=== PATIENT | female | born 2000 | race Caucasian/White ===

== ENCOUNTER 2025-02-27 22:11 | Emergency (ER) | payer OTHER, SELFPAY ==
[2025-02-27 22:14] VITALS: BP 107/71; PULSE 82; RESP 18; TEMP 36.9; O2SAT 100
--- OUTSIDE RECORDS SUMMARY | 2025-02-27 22:15 | XMS_ITS | Clinical Summary ---
Author Organization [facility] Address [address] [place] [address] Care Team Providers Care Repeater Chief Name Role Phone Jazzmine Ly MD Primary Care Provider [phone] Source Comments [facility],non-owned Affiliates and Associated Physician Practices is amultiple site organization consisting of ambulatory clinics and hospital sitesin [place], [place], [place] and [place]. This disclosure is being madepursuant to the Care Everywhere program and may not contain all information available regarding this patient. Last updated 18.[facility] Allergies Active Allergy Reactions Criticality Noted Date Comments Amoxicillin Rash Medium 07/06/2018 Medications * Be aware that medications may not be up to date on this document. Alwaysverify current medications with the patient. No known medications Active Problems No known active problems Social History Tobacco Use Types Packs/Day Years Used Date Smoking Tobacco: Never Smokeless Tobacco: Never Comments No Sex and Gender Information Value Date Recorded Sex Assigned at Not on file Legal Sex Female 5:12 PM CDT Gender Identity Not on file Sexual Orientation Not on file Last Filed Vital Signs Vital Sign Reading Time Taken Comments Blood Pressure 102/58 12/25/2019 11:57 AM CDT Pulse 106 12/25/2019 11:57 AM CDT Temperature 37.6 C (99.7 F) 12/25/2019 11:57 AM CDT Respiratory Rate 17 12/25/2019 11:57 AM CDT Oxygen Saturation 99% 12/25/2019 11:57 AM CDT Inhaled Oxygen Concentration - - Weight 52.2 kg (115 lb) 12/25/2019 11:57 AM CDT Height 157.5 cm (5' 2 ) 12/25/2019 11:57 AM CDT Body Mass Index 21.03 12/25/2019 11:57 AM CDT Plan of Treatment Health Maintenance Due Date Last Done Comments HIV SCREENING 2013 HPV VACCINE (1 - 3-dose series) 2013 HEPATITIS C SCREENING 04/17/2016 DTAP/TDAP/TD VACCINES (1 - Tdap) 2017 HEPATITIS B VACCINE (1 of 3 - 19+ 3-dose series) 2017 COVID-19 VACCINE (1 - 2023-2 5 season) 2024 DEPRESSION SCREENING 10/16/2024 INFLUENZA VACCINE (Season Ended) 2025 ZOSTER VACCINE (1 of 2) 2048 HIB VACCINE Aged Out No longer eligi ble based on patient's age to complete this topic MENINGOCOCCAL (Group B) VACC INE SHARED DECISION-MAKING Aged Out No longer eligibl e based on patient's age to complete this topic MENINGOCOCCAL GROUPS A/C/Y/W VACCINE Aged Out No longer eligible b ased on patient's age to complete this topic PNEUMOCOCCAL VACCINE Aged Out No long er eligible based on patient's age to complete this topic Insurance [facility] Care Teams Repeater Chief Relationship Specialty Start Date End Date Jazzmine Ly MD [address] [place] [id number] PCP - General Pediatrics 01/02/17
--- OUTSIDE RECORDS SUMMARY | 2025-02-27 22:15 | XMS_ITS | Clinical Summary ---
Author Organization [email or web address] [facility] [address] Address [address] [place] [address] Care Team Providers Care Muck Miner Name Role Phone Agustina Alexis MD Primary Care Provider [phone] Allergies Active Allergy Reactions Criticality Noted Date Comments Amoxicillin Rash Medium 11/09/2020 itch Medications naproxen (NAPROSYN) 500 mg tabletIndication s:Migraine without aura and without status migrainosus, not intractable Take 1 Tablet (500 mg) by mouth 1 time daily as needed for Pain, Moderate. 30 Tablet 2 Active Additional Information Patient not taking.Reported on 11/08/2024 loratadine (CLARITIN) 10 mg tabletIndication s:Rash and nonspecific skin eruption Take 1 Tablet (10 mg) by mouth daily. 30 Tablet 2 Active Additional Information Patient not taking.Reported on 11/08/2024 hydrOXYzine HCL (ATARAX) 25 mg tabletIndication s:Rash and nonspecific skin eruption Take 1 Tablet (25 mg) by mouth nightly as needed for Itching. 14 Tablet 2 Active Additional Information Patient not taking.Reported on 11/08/2024 acetaminophen (TYLENOL) 325 mg tablet Take 2 Tablets (650 mg) by mouth every 6 hours as needed. 30 Tablet 10/20/2022 1:45 PM FIRE ASSISTANT 3 Active Additional Information Patient not taking.Reported on 11/08/2024 Active Problems Problem Noted Date Diagnosed Date Maternal care for s car defect (isthmocele)-status post laparoscopic correction January 2022 02/21/2022 Endometriosis determined by laparoscopy-stage I, status post optimal surgical treatment February 2022 02/21/2022 Resolved Problems Problem Noted Date Diagnosed Date Resolved Date Abdominal wall mass 05/25/2022 11/07/19 Endometriosis in cutaneous scar 02/21/2022 05/25/2022 Encounters Date Type Department Care Team Description 02/06/2025 10:45 AM CDT Office Visit [facility] FASHION PHOTOGRAPHER - [facility] [place] [address] [facility] [address] [place] [phone] Farnaz Jaeger MD Maternal care for scar defect (isthmocele)-status post laparoscopic correction January 2022 (Primary Dx) 02/06/2025 10:00 AM CDT Ancillary Procedure [facility] FASHION PHOTOGRAPHER - [facility] [place] [address] [facility] [address] [place] [phone] Irregular menses 01/14/2025 External Device Data STL ABSTRACTION Provider, Abstract 12/21/2024 External Device Data STL ABSTRACTION Provider, Abstract 12/20/2024 External Device Data STL ABSTRACTION Provider, Abstract 12/18/2024 External Device Data STL ABSTRACTION Provider, Abstract 12/04/2024 External Device Data STL ABSTRACTION Provider, Abstract from Last 3 Months Immunizations Immunization Administration Dates Next Due (Depop)(12 YR UP) COVID-19 VACCINE - EMERGENCY USE AUTHORIZATION, MRNA, [id number](PF) 30 MCG/0.3 ML IM SUSP 02/20/2021,01/30/2021 Family History Medical History Relation Name Comments No Known Problems Father Diabetes Maternal Grandmother Livier Kidney Disease Maternal Grandmother Livier Asthma Mother Laurie Other Mother Laurie atrial fib Relation Name Status Comments Father Alive Maternal Grandmother Livier Mother Laurie Alive Social History Tobacco Use Types Packs/Day Years Used Date Smoking Tobacco: Never Passive Smoke Exposure: Never Smokeless Tobacco: Never Tobacco Cessation:Counseling Given: Not Answered Alcohol Use Standard Drinks/Week Comments Not Currently 0 (1 standard drink = 0.6 oz pur e alcohol) Comments No Sex and Gender Information Value Date Recorded Sex Assigned at Not on file Legal Sex Female 12:49 AM FIRE ASSISTANT Gender Identity Not on file Sexual Orientation Not on file Last Filed Vital Signs Vital Sign Reading Time Taken Comments Blood Pressure 110/64 02/06/2025 10:18 AM CDT Pulse 88 10/20/2022 1:04 PM FIRE ASSISTANT Temperature 36.8 C (98.3 F) 10/20/2022 1:04 PM FIRE ASSISTANT Respiratory Rate 16 10/20/2022 1:04 PM FIRE ASSISTANT Oxygen Saturation 100% 10/20/2022 1:04 PM FIRE ASSISTANT Inhaled Oxygen Concentration - - Weight 52.6 kg (116 lb) 11/08/2024 1:14 PM FIRE ASSISTANT Height 157.5 cm (5' 2.01 ) 02/06/2025 10:18 AM C DT Body Mass Index 21.21 11/08/2024 1:14 PM FIRE ASSISTANT Plan of Treatment Health Maintenance Due Date Last Done Comments HPV VACCINES (1 - 3-dose series) 2013 DTAP/TDAP/TD VACCINES (1 - Tdap) 2017 HEPATITIS B VACCINES (1 of 3 - 19+ 3-dose series) 2017 HPV/Cotest (21-29) 2019 COVID-19 Vaccine (2023- season) 06/16/202405/2021, 01/30/2021 CERVICAL CANCER SCREENING 11/08/2027 PAP SMEAR 11/08/2027 11/08/2024, 10/16 (Previously completed) INFLUENZA VACCINE Completed 11/08/2024, 11/09/2020 Preventative Visit- Commercial Completed 11/08/2024 Procedures Procedure Name Priority Date/Time Associated Diagnosis Comments US HYSTEROSONOGRAM Routine 02/06/2025 11 :04 AM CDT Irregular menses CT CATH & SALINE/CONTRAST SONOHYSTER/HYSTEROSALPI Routine 02/06/2025 10:45 AM CDT Maternal care for scar defect (isthmocele)-status post laparoscopic correction January 2022 POC , URINE Routine 02/06/2025 10:00 AM CDT Maternal care for scar defect (isthmocele)-status post laparoscopic correction January 2022 CERV/VAG CYTO AGE BASED SCREEN PAP Routine 11/08/2024 2:02 PM FIRE ASSISTANT Screening for cervical cancer from Last 3 Months or Most Recently Relevant to Health Maintenance Results * US HYSTEROSONOGRAM (02/06/2025 11:04 AM CDT) Anatomical Region Laterality Modality Pelvis Ultrasound 02/06/2025 10:2 2 AM CDT Narrative 02/07/2025 12:15 PM CDT [facility] PELVIC ULTRASOUND ----- Pat. Name: CHERRIE BERNAL Study Date: 02/06/2025 10:22am Pat. NO: [id number] Referring MD: Farnaz Jaeger MD Site: [address] Planning Associate: Tara Butt RDMS : 2000 Age: 24 ----- INDICATION ----- History Uterine Scar From Previous Uterine Surgery Endometriosis CODING ----- Diagnoses Z98.891: History of uterine scar from previous surgery N80.9: Endometriosis Procedures 39821: Saline Infusion Sonography 11178: Catheterization and introduction of saline or contrast material for saline infusion sonohysterography (SIS) or hysterosalpingography HISTORY ----- OB History 1. Para 1 [place] children born living (T) 1 T1L1 ASSESSMENT ----- LMP on 01/25/2025 METHOD ----- Transvaginal ultrasound examination UTERUS ----- Long 63 mm x ap 37 mm x tr 42 mm. Vol 51.7 cm Position: anteverted , anteflexed Malformations: none Myometrium: homogeneous. No obvious abnormalities seen in the area of previous uterine surgery after saline infusion. Endometrium: trilaminar No obvious abnormalities seen after saline infusion. Endometrial thickness, total 8.7 mm Cervix details: contains cystic lesions identified suggesting superficial Nabothian cysts RIGHT OVARY ----- appears normal in size, shape, structure and morphology. Outline: Smooth contours. Morphology: premenopausal normal follicular without a dominant follicle. Size 43 mm x 20 mm x 18 mm. Vol 8.4 cm LEFT OVARY ----- appears normal in size, shape, structure and morphology. Outline: Smooth contours. Size 43 mm x 23 mm x 25 mm. Vol 12.5 cm Cyst(s) Size 22 mm x 16 mm x 16 mm. Mean 17.7 mm. Vol 2.800 cm . anechoic CUL DE SAC ----- Free fluid is seen: mild IMPRESSION ----- Uterus is anteverted , anteflexed Myometrium appears homogeneous. No significant defect is seen in the area of previous isthmocele repair. The endometrium is trilaminar and measures 8.7 mm The cervix is normal in appearance. Bilateral ovaries are normal in appearance with a dominant follicle seen on the left ovary. Posterior cul de sac: Free fluid is seen FOLLOW-UP ----- As clinically indicated Procedure Farnaz Menjivar MD - 02/07/2025 CLINIC PELVIC ULTRASOUND ----- Pat. Name:Guerrero BERNAL Date:02/06/2025 10:22am Pat. NO: [id number] MD:Farnaz Jaeger MD [address]:Tara Butt RDMS :2000Age:24 ----- INDICATION ----- History Uterine Scar From Previous Uterine Surgery Endometriosis CODING ----- Diagnoses Z98.891: History of uterine scar from previoussurgery N80.9: Endometriosis Procedures 99914: Saline Infusion Sonography 75010: Catheterization and introduction of salineor contrast material for saline infusion sonohysterography (SIS) or hysterosalpingography HISTORY ----- OB History 1. Para 1 [place] children born living (T) 1 T1L1 ASSESSMENT ----- LMP on 01/25/2025 METHOD ----- Transvaginal ultrasound examination UTERUS ----- Long 63 mm x ap 37 mm x tr 42 mm. Vol 51.7 cm Position: anteverted , anteflexed Malformations: none Myometrium: homogeneous. No obvious abnormalities seen in the area of previous uterine surgery after saline infusion. Endometrium: trilaminar No obvious abnormalities seen after saline infusion. Endometrial thickness, total 8.7 mm Cervix details: contains cystic lesions identified suggesting superficial Nabothian cysts RIGHT OVARY ----- appears normal in size, shape, structure and morphology. Outline: Smooth contours. Morphology: premenopausal normal follicular without a dominant follicle. Size 43 mm x 20 mm x 18 mm. Vol 8.4 cm LEFT OVARY ----- appears normal in size, shape, structure and morphology. Outline: Smoothcontours. Size 43 mm x 23 mm x 25 mm. Vol 12.5 cm Cyst(s) Size 22 mm x 16 mm x 16 mm. Mean 17.7 mm. Vol2.800 cm . anechoic CUL DE SAC ----- Free fluid is seen: mild IMPRESSION ----- Uterus is anteverted , anteflexed Myometrium appears homogeneous. No significant defect is seen in the areaof previous isthmocele repair. The endometrium is trilaminar and measures 8.7 mm The cervix is normal in appearance. Bilateral ovaries are normal in appearance with a dominant follicle seenon the left ovary. Posterior cul de sac: Free fluid is seen FOLLOW-UP ----- As clinically indicated us Farnaz Jaeger MD ORDERABLES Final Result * CT CATH & SALINE/CONTRAST SONOHYSTER/HYSTEROSALPI (02/06/2025 10:45 AM CDT) [facility] FASHION PHOTOGRAPHER ÁNGEL Lopez [address] - 02/06/2025 10:45 AM CDT Farnaz Jaeger MD 02/06/2025 2:57 PM Sonohysterogram Date/Time: 02/06/2025 10:45 AM Performed by: Farnaz Jaeger MD Authorized by: Farnaz Jaeger MD Consent: Consent obtained: Written Consent given by: Patient Procedural risks discussed: Bleeding and infection Patient questions answered: yes Patient agrees, verbalizes understanding, and wants to proceed: yes Pre-procedure: Prepped with: Betadine Procedure: Cervix cleaned and prepped: yes Tenaculum applied to cervix: yes Catheter inserted: yes Uterine cavity distended with saline: yes Post-procedure: Patient observed: yes Patient observation time: 10 minutes Estimated blood loss (mL): 0 Post procedure instructions given to patient: yes Patient tolerated procedure well with no complications: yes Comments: Patient was placed in lithotomy. A speculum was placed in the cervix. The cervix was cleansed with betadine. The anterior lip of the cervix was grasped with a single tooth tenaculum. The catheter was easily inserted through the cervix and the balloon inflated. The tenaculum and speculum were removed. Sterile water was slowly injected through the catheter into the endometrial cavity. Appropriate US images were taken. Please see report for details of the images. The catheter balloon was deflated and the catheter removed. The speculum was re-inserted into the vagina and the tenaculum sites were hemostatic. The patient tolerated the procedure well. us Farnaz Jaeger MD PROCEDURE ORDERABLES Final Re sult Performing Organization Address [facility] de Phone Number [facility] FASHION PHOTOGRAPHER ATHENSER A REILLY [address] CLIA# [id number] [address] [address] * POC , URINE (02/06/2025 10:00 AM CDT) Pathologist [facility] HCG QUAL URINE POC Negative Negative, Indeterminate [facility] FASHION PHOTOGRAPHER TOWER A REILLY [address] INTERNAL KIT QC POC Pass Pass [facility] FASHION PHOTOGRAPHER TOWER A [address] KIT LOT NUMBER POC [id number] [facility] FASHION PHOTOGRAPHER TOWER A REILLY [address]A KIT EXP DATE POC 05/27/26 [facility] FASHION PHOTOGRAPHER TOWER A [address]ILLY [address] Urine 02/06/2025 10:0 0 AM CDT us Farnaz Jaeger MD POINT OF CARE TESTING Final Resu lt Performing Organization Address [facility] de Phone Number [facility] FASHION PHOTOGRAPHER TOWER A REILLY [address]A CLIA# [id number] [address] [address] * CERV/VAG CYTO AGE BASED SCREEN PAP (11/08/2024 2:02 PM FIRE ASSISTANT) Pathologist [facility] COMMENT (PAP): [employer] Holdings[employer]arkis Taylor Comment: This order for age-based cervical cancer and STI screening follows ACOG guidelines(PB 168, 140, OIF252). See individual assays for performing site location. CLINICAL INFORMATION [employer]arkis Taylor Comment:None given LAST MENSTRUAL PERIOD Khushi Taylor Comment:11/06/2024 PREV PAP: Khushi Taylor Comment:NONE GIVEN PREV BX: Khushi Taylor Comment:NONE GIVEN SOURCE Khushi Taylor Comment:Endocervix ADEQUACY: Khushi Taylor Comment: Satisfactory for evaluation. Endocervical/transformation zone component present. PAP INTERP Khushi Taylor Comment: Cytology Results: Negative for intraepithelial lesion or malignancy. COMMENT (PAP TEST) Q uest Johan Taylor Comment: This Pap test has been evaluated with computer assisted technology. WEED THINNER: Alison Taylor Comment: MEF, CT(ASCP) CT screening location: [place] [address] [address] TAZ [place] [address] Johan Taylor Comment: EXPLANATORY NOTE: The Pap is a screening test for cervical cancer. It is not a diagnostic test and is subject to false negative and false positive results. It is most reliable when a satisfactory sample, regularly obtained, is submitted with relevant clinical findings and history, and when the Pap result is evaluated along with historic and current clinical information. Test Performed at: [place] [address] [address] [place] [phone] Angel Y[facility] Genital SWAB OF ENDOCERVIX / Unknown 11/08/2024 2:02 PM FIRE ASSISTANT 11/09/2024 12:49 AM FIRE ASSISTANT Farnaz Jaeger MD PATHOLOGY/CYTOLOGY ORDERABLES nal Result [facility] [phone] [facility] [place] [address] [address] [place] [place] [phone] from Last 3 Months or Most Recently Relevant to Health Maintenance Insurance [employer] [facility] [id number] [employer] Advance Directives For more information, please contact: [phone] * Full Code (Latest Code Status on File) Date Activated Date Inactivated Comments 10/20/2022 9:16 AM 10/20/2022 3:54 PM * Full Code Date Activated Date Inactivated Comments 02/01/2022 9:43 AM 02/01/2022 7:50 PM Care Teams Muck Miner Relationship Specialty Start Date End Date Agustina Alexis MD [address] [phone] PCP - General Internal Medicine 01/28/21
--- OUTSIDE RECORDS SUMMARY | 2025-02-27 22:16 | XMS_ITS | Data Portability ---
Author Organization [facility], [place] Address [address] [place] [address] Assessment No assessment recorded. Plan of Treatment Reminders Order Date Submit Date Provider Last Modified By Organization Details Last Modified Time Details Appointments None recorded. Lab None recorded. Referral None recorded. Procedures None recorded. Surgeries None recorded. Imaging None recorded. Medication Orders Diflucan 150 mg tablet 2020 021 INTERFACE [employer] [facility] #[id number], [address] , [place], [place], [id number], 10:54:44 Patient TargetsNo targets recorded. Patient InstructionsNo instructions recorded. Reason for Referral None Reported. Results Created Date Observation Date Name Description Value Unit Range Abnormal Flag Note LastModifiedBy Organization Detail LastModifiedTime 10/21/19 21 10/23/2020 bacte rial vagin osis + vagin itis panel , vagin al kraig sp. Not Detect ed normal Trich omona s vagin zac: DNA testi ng perfo rmed by Trans cript ion Media salena Ampli ficat ion (TMA) These resul ts shoul d be inter prete d in light of all clini moe and labor atory findi ngs. This assay is highl y accur ate, but rare false posit kamini and negat kamini resul ts may occur . Posit kamini resul ts in low preva lence popul ation s may requi re re-ev aluat ion. A negat kamini resul t does not precl ude a possi ble infec tion due to a speci men inade quacy or sampl ing error . Test perfo rmed by [facility], [address], d/b/a [facility], [address], [place] [address] , Lesia Garcia ra, DO, Labor atory Direc tor. Buster marina a vagin zac, Sparkle da speci es: Genom ic DNA is isola salena from patie nt speci mens by stand ibeth labor atory techn iques and lamin zed using custo m OpenA rray plate s, perfo rmed on the Quant Studi o 12K Flex Real Time PCR syste m. A posit kamini resul t is provi ded for patho genic bacte pola, virus and/o r funga l speci es based on detec tion of ampli ficat ion produ cts. Citlaly l vagin al zaira resul ts of Citlaly l or [place] salena are deter mined by calcu latin g the ratio of the organ ism to the total bacte pola prese nt in the speci men, and armen ring that ratio to a PathG roup patie nt popul ation . Overa ll resul ts of Citlaly l, Borde rline and Abnor mal are deter mined using a proba bilit y model which was devel oped by an exten sive lamin sis and integ ratio n of clini moe thres holds for marke r organ isms on a large set of sympt omati c & asymp tomat ic speci mens. Patie nt popul ation s with diffe rent demog raphi cs from the PathG roup model popul ation may have diffe rent indic ator organ isms with diffe rent relat kamini ratio s, which would influ ence the final resul ts. Resul ts shoul d be inter prete d in the bhaskar xt of all clini moe and labor atory findi ngs. The test was devel oped and its perfo rmanc e kumar cteri stics deter mined by AssNational Institutes of Health (NIH) Patho logis ts, [address] d/b/a [facility]. It has not been clear ed or appro mary by the U.S. Food and Drug Admin istra tion. The FDA has deter mined that such clear ance or appro consuelo is not neces jose armando. Perti nent refer ence inter vals are avail able from the labor atory on reque st. Test( s) perfo rmed by [facility] logis [employer], [address], d/b/a Path [facility], [address], [place] [address] , Lesia Garcia ra, DO, Labor atory Direc tor. Not Available [facility] ([facility]) [address], [place], [address], 10/23/2020 16:41:40 10/21/19 21 10/23/2020 bacte rial vagin osis + vagin itis panel , vagin al gardnerella vaginalis Detect ed abnormal Trich omona s vagin zac: DNA testi ng perfo rmed by Trans cript ion Media salena Ampli ficat ion (TMA) These resul ts shoul d be inter prete d in light of all clini moe and labor atory findi ngs. This assay is highl y accur ate, but rare false posit kamini and negat kamini resul ts may occur . Posit kamini resul ts in low preva lence popul ation s may requi re re-ev aluat ion. A negat kamini resul t does not precl ude a possi ble infec tion due to a speci men inade quacy or sampl ing error . Test perfo rmed by [facility] log[facility] [employer], [address], d/b/a [facility], [address], [place] [address] , Lesia Garcia ra, DO, Labor atory Direc tor. Gardn erell a vagin zac, Sparkle da speci es: Genom ic DNA is isola salena from patie nt speci mens by stand ibeth labor atory techn iques and lamin zed using custo m OpenA rray plate s, perfo rmed on the [employer] Stud[employer] o 12K Flex Real Time PCR syste m. A posit kamini resul t is provi ded for patho genic bacte pola, virus and/o r funga l speci es based on detec tion of ampli ficat ion produ cts. Citlaly l vagin al zaira resul ts of [place] l or [place] sal[place] are deter mined by calcu latin g the ratio of the organ ism to the total bacte pola prese nt in the speci men, and armen ring that ratio to a PathG roup patie nt popul ation . Overa ll resul ts of Citlaly l, Borde rline and Abnor mal are deter mined using a proba bilit y model which was devel oped by an exten sive lamin sis and integ ratio n of clini moe thres holds for marke r organ isms on a large set of sympt omati c & asymp tomat ic speci mens. Patie nt popul ation s with diffe rent demog raphi cs from the PathG roup model popul ation may have diffe rent indic ator organ isms with diffe rent relat kamini ratio s, which would influ ence the final resul ts. Resul ts shoul d be inter prete d in the bhaskar xt of all clini moe and labor atory findi ngs. The test was devel oped and its perfo rmanc e kumar cteri stics deter mined by [employer] Richard [facility] - 3P ts, [address] d/b/a [facility]. It has not been clear ed or appro mary by the U.S. Food and Drug Admin istra tion. The FDA has deter mined that such clear ance or appro consuelo is not neces jose armando. Perti nent refer ence inter vals are avail able from the [facility] atory on reque st. Test( s) perfo rmed by [employer] [facility], [address], d/b/a [facility], [address], [place] [address] , Lesia Garcia ra, DO, Labor atory Direc tor. Not Available [facility] ([facility]) [address], [place], [address], 10/23/2020 16:41:40 10/21/19 21 10/23/2020 bacte rial vagin osis + vagin itis panel , vagin al trichomonas vaginalis, aptima (panther) NOT DETECT ED normal Trich omona s vagin zac: DNA testi ng perfo rmed by Trans cript ion Media salena Ampli ficat ion (TMA) These resul ts shoul d be inter prete d in light of all clini moe and labor atory findi ngs. This assay is highl y accur ate, but rare false posit kamini and negat kamini resul ts may occur . Posit kamini resul ts in low preva lence popul ation s may requi re re-ev aluat ion. A negat kamini resul t does not precl ude a possi ble infec tion due to a speci men inade quacy or sampl ing error . Test perfo rmed by [facility], d/b/a [facility], [address], [facility] [place] [address] , Lesia Garcia ra, DO, Labor atory Direc tor. Buster marina a vagin zac, Sparkle da speci es: Genom ic DNA is isola salena from patie nt speci mens by stand ibeth labor atory techn iques and lamin zed using custo m OpenA rray plate s, perfo rmed on the Quant Studi o 12K Flex Real Time PCR syste m. A posit kamini resul t is provi ded for patho genic bacte pola, virus and/o r funga l speci es based on detec tion of ampli ficat ion produ cts. Citlaly l vagin al zaira resul ts of [place] l or [place] are deter mined by calcu latin g the ratio of the organ ism to the total bacte pola prese nt in the speci men, and armen ring that ratio to a PathG roup patie nt popul ation . Overa ll resul ts of Citlaly l, Borde rline and Abnor mal are deter mined using a proba bilit y model which was devel oped by an exten sive lamin sis and integ ratio n of clini moe thres holds for marke r organ isms on a large set of sympt omati c & asymp tomat ic speci mens. Patie nt popul ation s with diffe rent demog raphi cs from the PathG roup model popul ation may have diffe rent indic ator organ isms with diffe rent relat kamini ratio s, which would influ ence the final resul ts. Resul ts shoul d be inter prete d in the bhaskar xt of all clini meo and labor atory findi ngs. The test was devel oped and its perfo rmanc e kumar cteri stics deter mined by [employer] [facility] [employer], [address] d/b/a [facility]. It has not been clear ed or appro mary by the U.S. Food and Drug Admin istra tion. The FDA has deter mined that such clear ance or appro consuelo is not neces jose armando. Perti nent refer ence inter vals are avail able from the labor atory on reque st. Test( s) perfo rmed by [employer] [facility] [employer], [address], d/b/a [facility], [address], [place] [address] , Lesia Garcia ra, DO, Labor atory Dire tor. Not Available [facility] [address], [place], [address], 10/23/2020 16:41:40 Result Notes None recorded. Problems Name Problem SNOMED Code Status Onset Date Resolution Date Notes Provider Name and Address Organization Details Recorded Time , childbirt h and puerperiu m finding Active 2017 Encounter for supervisi on of normal first , third trimester ;Recorded Elsewhere : No Locati on: [facility] So urce: EHR Chron ic: N Practic e ID: 0001 Bill able Time: 12:00:00 PM Not Available [facility] 0 17:42:39 Pelvic and perineal pain [id number] Active 2018 Pelvic and perineal pain;Cruzito rded Elsewhere : No Locati on: [facility] So urce: EHR Chron ic: N Practic e ID: 0001 Bill able Time: 03:00:00 PM Not Available [facility] 0 17:42:39 detection examinati on Active 2016 Encounter for test, result positive; Recorded Elsewhere : No Locati on: [facility] So urce: EHR Chron ic: N Practic e ID: 0001 Bill able Time: 09:45:00 AM Not Available [facility] 0 17:42:40 Normal in multigrav tiffanie [id number] 4106 Active 2017 Encounter for suprvsn of normal , third trimester ;Recorded Elsewhere : No Locati on: [facility] So urce: EHR Chron ic: N Practic e ID: 0001 Bill able Time: 03:30:00 PM Not Available [facility] 0 17:42:40 test negative 528306450 Active 2018 Encounter for test, result negative; Recorded Elsewhere : No Locati on: [facility] So urce: EHR Chron ic: N Practic e ID: 0001 Bill able Time: 03:00:00 PM Not Available [facility] 0 17:42:40 , childbirt h and puerperiu m finding Active 2016 Encounter for supervisi on of normal 1st , 2nd trimester ;Recorded Elsewhere : No Locati on: [facility] So urce: EHR Chron ic: N Practic e ID: 0001 Bill able Time: 04:15:00 PM Not Available [facility] 0 17:42:40 Amenorrhe a 56024617 Active 2016 Amenorrhe a;Recorde d Elsewhere : No Locati on: [facility] So urce: EHR Chron ic: N Practic e ID: 0001 Bill able Time: 09:45:00 AM Not Available [facility] [address] [facility] Concept Active 2018 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; Recorded Elsewhere : No Locati on: [facility] So urce: EHR Chron ic: N Practic e ID: 0001 Bill able Time: 09:15:00 AM Not Available [facility] 0 17:42:[address] Concept Active 2018 Encntr for general adult medical exam w/o abnormal findings; Recorded Elsewhere : No Locati on: [facility] So urce: EHR Chron ic: N Practic e ID: 0001 Bill able Time: 02:00:00 PM Not Available [facility] 0 17:42:40 Education Active 2017 Encounter for other general counselin g on contracep tion;Cruzito rded Elsewhere : No Locati on: [facility] So urce: EHR Chron ic: N Practic e ID: 0001 Bill able Time: 03:00:00 PM Not Available [facility] 0 17:42:40 Pain of left hip joint [id number] 9100 Active 2016 Pain in left hip;Recor ded Elsewhere : No Locati on: [facility] So urce: EHR Chron ic: N Practic e ID: 0001 Bill able Time: 04:15:00 PM Not Available [facility] 0 17:42:40 , childbirt h and puerperiu m finding Active 2016 Encounter for supervisi on of normal 1st , 1st trimester ;Recorded Elsewhere : No Locati on: [facility] So urce: EHR Chron ic: N Practic e ID: 0001 Bill able Time: 03:00:00 PM Not Available [facility] 0 17:42:41 Lochia finding Active 2017 Encounter for routine postpartu m follow-up ;Recorded Elsewhere : No Locati on: [facility] So urce: EHR Chron ic: N Practic e ID: 0001 Bill able Time: 02:15:00 PM Not Available [facility] 0 17:42:41 Umbilical cord finding Active 2017 Labor and delivery complicat ed by prolapse of cord, unsp;Prac prerna ID: 0001 Not Available [facility] 0 17:42:42 heart finding Active 2017 Abnlt in heart rate and rhythm comp labor and delivery; Practice ID: 0001 Not Available [facility] 0 17:42:42 Single live from edward [id number] Active 2017 Single live ;Pra ctice ID: 0001 Not Available [facility] 0 17:42:42 Gestation period, 39 weeks 89291607 Active 2017 39 weeks gestation of ;Practice ID: 0001 Not Available [facility] 0 17:42:42 Uses combined oral contracep tion 908665988 Active 2017 Encounter for surveilla nce of contracep tive pills;Pra ctice ID: 0001 Not Available [facility] 0 17:42:42 Notes:Encounter for antenata l screening of mother Recorded Elsewhere: No Location: [facility] Source: EHR Chronic: N Practice ID: [id number] Billable Time: 04:45:00 PM Encounter for screening of mother Practice ID: [id number] Encounter for screening of mother Recorded Elsewhere: No Location: [facility] Source: EHR Chronic: N Practice ID: 0001 Billable Time: 02:30:00 PM Encounter for screening of mother Practice ID: [id number] Problem Notes None recorded. Medical Equipment None Reported. Allergies Allergen ID Allergen Name Allergen Category Reaction Reaction Severity Criticality Documentation Date Start Date Code Code System Note Provider Name and Address Organization Details Recorded Time 83483 amoxicill in medicatio n Not available Not available Not available 10/02/2020 723 RxNorm Comme nt: [facility]at [facility]; Not Available [facility] 0 14:24:32 Medications Name Sig Start Date Stop Date Status Note LastModified by Organization Details LastModified Time cyclobenz aprine 10 mg tablet take 1 tablet by oral route 2 times every day 05/15 completed Prescrib ed Elsewher e: No Locat ion: Moises quinn [facility] odify By: tamia ibarra DateTime : 05/15/20 17 03:00:00 PM Not Available Not Available Not Available Diflucan 150 mg tablet Take 1 tablet every day by oral route for 1 day. 2020 active Not Available Not Available Not Avai lable Macrobid 100 mg capsule take 1 capsule by oral route every 12 hours with food, as directed 11/07 completed Prescrib ed Elsewher e: No Locat ion: [facility] quinn [facility] odify By: erwin bashir DateTime : 05/19/20 17 03:49:54 PM Not Available Not Available Not Available amoxicill in 875 mg tablet take 1 tablet by oral route every 12 hours 11/07 completed Prescrib ed Elsewher e: No Locat ion: Radha[facility]ira laurie [facility] odify By: smcaley Samantasidney r DateTime : 05/15/20 17 03:00:00 PM Not Available Not Available Not Available Metrogel Vaginal 0.75 % (37.5 mg/5 gram) Insert 1 applicat orful every day by vaginal route for 5 days. 2020 active Not Available Not Available Not Avai lable Gresham 10 mg-325 mg tablet take 1 tablet by oral route every 4 - 6 hours as needed for pain 12/27 completed Prescrib ed Elsewher e: No Locat ion: [facility] laur[facility] odify By: amkuhkishan Quinn ncounter DateTime : 11/30/19 18 07:45:58 AM Not Available Not Available Not Available Loestrin Fe 1.5/30 (28-Day) 1.5 mg-30 mcg (21)/75 mg (7) tablet take 1 tablet by oral route every day 10/21 completed Prescrib ed Elsewher e: No Locat ion: [facility] odify By: kpanyik Encounte r DateTime : 03/26/20 19 02:00:00 PM Not Available Not Available Not Available Vitals Date Recorded Body height Body mass index (BMI) Body weight Systolic blood pressure Diastolic blood pressure Provider Name and Address Organization Details Last Updated DateTime 10/21/2020 157.48 cm 23.2 kg/m2 56734.23 g 109 mm[Hg] 67 mm[Hg] Farnaz Armijo [facility] 10:21:25 Social History None recorded. Functional Status None recorded. Mental Status None recorded. Family History Nothing Reported Notes:Mother: No history of Cancer, cervical Medical History No medical history recorded. Gynecological History Statement/Question Response Current Control Method None Date of LMP 09/26/2020 Obstetrics History GPAL:G 0 P 0 0 0 0 Past Encounters Encounter ID Performer Location Encounter Start Date Encounter Closed Date Diagnosis/Indication Diagnosis SNOMED-CT Code Diagnosis ICD10 Code Diagnosis Note [id number] Becky Busby [facility] [address] [address] 10/21/2020 10:07:08 10/21/2020 17:21:39 Vaginitis [id number] N76.0 Will treat for yeast today & await results before further treatment is sent. Declined need for std screening. Time spent in visit is a total of 15 mins with at least 50% of visit consisting of counseling and review of plan of care. Health Concerns Section Related Observation LastModified by Organization Detai ls LastModified Time None Recorded Concern Status LastModified by Organization Details LastModified Time None Recorded Advance Directives Directive None Recorded Payers Encounter Date Sequence Insurance Name Policy Number Policy Rodriguez Covered Member ID Rodriguez Member ID Guarantor Name 10/21/2020 1 [employer]: (PPO) [id number] Jose E Angelo [id number] Rabia Angelo Notes Date Note Type Note Provider Name and Address Organization Details Recorded Time 10/21/2020 text/html Vaginal/Vulvar ProblemReported bypatient.Notes:Dalila bermeo is a 20yo white female here today with c/o vag d/c, itching, odor x 2wks. No new sexual partners. Menses is regular with minimal cramping. Neg urinary issues Neg GI issues Neg pelvic pain Becky Busby [facility] [address], [place], [address], [facility] 10/21/2020 10:55:00 OBGyn Episode No OBEpisode recorded.
[2025-02-27 22:35] LABS: Appearance Urine Clear (Clear); Bilirubin Urine Negative (Negative); Blood Urine Trace-intact (Negative); Glucose Urine UA Trace (Negative); Ketones Urine Negative (Negative); Leukocyte Esterase Ur 2+ LEU/UL (Negative); Nitrate Urine Positive (Negative); Protein Urine Trace (Negative); Specific Grav Ur <= 1.005 (1.010-1.020)
[2025-02-27 22:40] LABS: Add Urine Microscopic? YES
[2025-02-27 22:41] LABS: Bacteria Urine Trace /hpf; Color Urine Dark Orange (Yellow); RBC Urine 0-2 /hpf (0-2); Squamous Epithelial Cell Urine None seen /hpf (Few)
--- NOTE | 2025-02-27 22:49 | ED.FEMALEGU ---
HPI - Female Genitourinary General Chief complaint: Urogenital-Female Stated complaint: urogenital female Time Seen by Provider: 02/27/25 22:31 Source: patient and family Mode of arrival: ambulatory Limitations: no limitations History of Present Illness HPI Narrative: this is a 24-year-old female presents with some urinary frequency with dysuria with no fever chills does have suprapubic tenderness with no flank pain no nausea vomiting vaginal discharge. MD elicited complaint: dysuria Related Data Allergies Allergy/AdvReac Type Severity Reaction Status Date / Time amoxicillin AdvReac Unknown rash Verified 02/27/25 22:21 Review of Systems Review of Systems: All systems reviewed & are unremarkable except as noted in HPI and below PMFSH Past Medical History Medical History Patient denies medical problems Family History Family History Mother Heart disease Grandparent Diabetes mellitus Social History Social History Smoking status: Never smoker Alcohol intake: current Drinks per week: 1 Substance use: never Exam Const: General: healthy appearing and no acute distress Nutritional Appearance: well nourished Orientation/consciousness: patient oriented x3 Limitations: no limitations Resp: Effort & Inspection: normal respiratory effort Auscultation: clear to auscultation bilaterally Cardio: Rate: regular rate Rhythm: regular rhythm GI: GI Palp: Yes Soft to palpation and Yes Tenderness to palpation present (GI) ( suprapubic tenderness with palpation) : General: Yes Bladder palpation abnormal Urinary Catheter: Urinary Catheter: patent and draining Skin: General skin exam: normal color Rashes: no rashes Wounds: no wounds Course Course Emergency Course: patient UA shows positive for UTI and a dose of Macrobid 100mg administered in the emergency department and prescription sent to patient's pharmacy. Vital Signs Vital signs: Vital Signs Temperature 36.9 C 02/27/25 22:14 Pulse Rate 82 02/27/25 22:14 Respiratory Rate 18 02/27/25 22:14 Blood Pressure 107/71 02/27/25 22:14 Pulse Oximetry 100 02/27/25 22:14 Oxygen Delivery Room Air 02/27/25 22:14 Temperature 36.9 C 02/27/25 22:14 Pulse Rate 82 02/27/25 22:14 Respiratory Rate 18 02/27/25 22:14 Blood Pressure 107/71 02/27/25 22:14 Pulse Oximetry 100 02/27/25 22:14 Oxygen Delivery Room Air 02/27/25 22:14 MDM - Female Genitourinary Lab Data Labs: Lab Results 02/27/25 Range/Units 22:33 Urine Color Dark orange (Yellow) Urine Appearance Clear (Clear) Urine pH 6.0 (5.0-8.0) Ur Specific [place] <= 1.005 L (1.010-1.020) Urine Protein Trace H (Negative) Urine Glucose (UA) Trace H (Negative) Urine Ketones Negative (Negative) Ur Blood (Man) Trace-intact H (Negative) Urine Nitrate Positive H (Negative) Urine Bilirubin Negative (Negative) Urine Urobilinogen 2.0 H (0.2-1.0) mg/dL Leukocyte Esterase Rfl 2+ H (Negative) MAXIM/UL Urine RBC 0-2 (0-2) /hpf Urine WBC 7-9 H (0-3) /hpf Ur Squamous Epith Cells None seen (Few) /hpf Urine Bacteria Trace (None) /hpf Critical Care Time Critical Care Time Critical Care Time: No Discharge Plan Discharge Clinical Impression: Urinary tract infection Qualifiers: Urinary tract infection type: acute cystitis Hematuria presence: without hematuria Qualified Code(s): N30.00 - Acute cystitis without hematuria Patient Disposition: Home Condition: Stable Instructions: Antibiotic Form, Urinary Tract Infection in Women (ED) Additional Instructions: Advised patient to take medication as prescribed and to follow with primary symptoms persist or worsen. Patient Language: Indonesian Prescriptions: New nitrofurantoin monohyd/m-cryst [Macrobid] 100 mg capsule 100 mg PO Q12H 7 Days Qty: 14 0RF Rx Instructions: must administer with a meal/food Follow-up/Referrals: UNKNOWN,DOCTOR [Primary Care Provider] - Time of Disposition: 22:52
[2025-02-27] MEDS: NITROFURANTOIN MONOHYD MACROCR 100 MG CAP PO (22:52)
--- OUTSIDE RECORDS SUMMARY | 2025-02-27 22:57 | XMS_ITS | Clinical Summary ---
Author Organization [employer] [facility] [address] Address [address] [place] [address] Care Team Providers Care Steam Shovel Runner Name Role Phone Agustina Alexis MD Primary Care Provider [phone] Allergies Active Allergy Reactions Criticality Noted Date [...] as needed. 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 January 2022 (Primary Dx) 02/06/2025 10:00 AM CDT Ancillary Procedure [facility] DIABETIC EDUCATOR - [address] [facility] [address] [place] [phone] Irregular menses 01/14/2025 External Device Data ST[facility] ABSTRACTION Provider, Abstract 12/21/2024 External Device Data STL ABSTRACTION Provider, Abstract 12/20/2024 External Device Data STL ABSTRACTION Provider, Abstract 12/18/2024 External Device Data STL ABSTRACTION Provider, Abstract 12/04/2024 External Device Data STL ABSTRACTION Provider, Abstract from Last 3 Months Immunizations Immunization Administration Dates Next Due (GVISP 1)(12 YR UP) COVID-19 VACCINE - EMERGENCY USE AUTHORIZATION, MRNA, [id number](PF) 30 MCG/0.3 ML IM SUSP 02/20/2021,01/30/2021 Family [...] on file Legal Sex Female 12:49 AM LIQUID COMPOUNDER Gender Identity Not on file Sexual Orientation Not on file Last Filed Vital Signs Vital Sign Reading Time Taken Comments Blood Pressure 110/64 02/06/2025 10:18 AM CDT Pulse 88 10/20/2022 1:04 PM LIQUID COMPOUNDER Temperature 36.8 C (98.3 F) 10/20/2022 1:04 PM LIQUID COMPOUNDER Respiratory Rate 16 10/20/2022 1:04 PM LIQUID COMPOUNDER Oxygen Saturation 100% 10/20/2022 1:04 PM LIQUID COMPOUNDER Inhaled Oxygen Concentration - - Weight 52.6 kg (116 lb) 11/08/2024 1:14 PM LIQUID COMPOUNDER Height 157.5 cm (5' 2.01 ) 02/06/2025 10:18 AM C DT Body Mass Index 21.21 11/08/2024 1:14 PM LIQUID COMPOUNDER Plan of Treatment Health Maintenance Due Date [...] 02/06/2025 11 :04 AM CDT Irregular menses [place] CATH & SALINE/CONTRAST SONOHYSTER/HYSTEROSALPI Routine 02/06/2025 10:45 AM CDT 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 Name: CHERRIE BERNAL Study Date: 02/06/2025 10:22am Pat. NO: [id number] Referring MD: Farnaz Jaeger MD Site: [address] Cad Cam Programmer: Tara Butt RDMS : 2000 Age: 24 ----- INDICATION ----- History Uterine Scar From Previous Uterine Surgery Endometriosis CODING ----- Diagnoses Z98.891: History of uterine scar from previous surgery N80.9: Endometriosis Procedures 19689: Saline Infusion Sonography 11517: Catheterization and introduction of saline or contrast [...] Pat. Name:Guerrero BERNAL Date:02/06/2025 10:22am Pat. NO: [id number] MD:Farnaz Jaeger MD Site:[address]:Tara Butt RDMS :2000Age:24 ----- INDICATION ----- History Uterine Scar From Previous Uterine Surgery Endometriosis CODING ----- Diagnoses Z98.891: History of uterine scar from previoussurgery N80.9: Endometriosis Procedures 67341: Saline Infusion Sonography 54592: Catheterization and introduction of salineor contrast material [...] Farnaz Jaeger MD ORDERABLES Final Result * [place] CATH & SALINE/CONTRAST SONOHYSTER/HYSTEROSALPI (02/06/2025 10:45 AM CDT) [facility] DIABETIC EDUCATOR ÁNGEL Lopez [address] - 02/06/2025 10:45 [...] ORDERABLES Final Re sult Performing Organization Address [facility] de Phone Number [facility] DIABETIC EDUCATOR COAL VALLEYER A REILLY 6[address] CLIA# [id number] [address] [address] * POC , URINE (02/06/2025 10:00 AM CDT) Pathologist [facility] HCG QUAL URINE POC Negative Negative, Indeterminate [facility] DIABETIC EDUCATOR TOWER A REILLY [address] INTERNAL KIT QC POC Pass Pass [facility] DIABETIC EDUCATOR TOWER A REILLY [address] KIT LOT NUMBER POC [id number] [facility] DIABETIC EDUCATOR TOWER A REILLY [address] KIT EXP DATE POC 05/27/26 [facility] DIABETIC EDUCATOR TOWER A REILLY [address] Urine 02/06/2025 10:0 0 AM CDT us Farnaz Jaeger MD POINT OF CARE TESTING Final Resu lt Performing Organization Address [facility] de Phone Number [facility] DIABETIC EDUCATOR TOWER A REILLY [address]A CLIA# [id number] [address] [address] * CERV/VAG CYTO AGE BASED SCREEN PAP (11/08/2024 2:02 PM LIQUID COMPOUNDER) Pathologist [facility] COMMENT (PAP): [employer]Sarkis Taylor Comment: This order for age-based cervical cancer and STI screening follows ACOG guidelines(PB 168, 140, WWF462). See individual assays for performing site location. CLINICAL INFORMATION [employer]Sarkis Taylor Comment:None given LAST MENSTRUAL PERIOD Khushi Taylor Comment:11/06/2024 PREV PAP: Khushi Taylor Comment:NONE GIVEN PREV BX: Khushi Taylor Comment:NONE GIVEN SOURCE Khsuhi Taylor Comment:Endocervix ADEQUACY: Khushi Taylor Comment: Satisfactory for evaluation. Endocervical/transformation zone component present. PAP INTERP Khushi Taylor Comment: Cytology Results: Negative for intraepithelial lesion or malignancy. COMMENT (PAP TEST) Q uest Johan Taylor Comment: This Pap test has been evaluated with computer assisted technology. FOOD PRODUCTS TESTER: Alison Taylor Comment: MEF, CT(ASCP) CT screening location: [place] [address] [id number] Johan Taylor Comment: [...] and current clinical information. Test Performed at: [facility] [address] [address] [phone] Angel Yee Genital SWAB OF ENDOCERVIX / Unknown 11/08/2024 2:02 PM LIQUID COMPOUNDER 11/09/2024 12:49 AM LIQUID COMPOUNDER Farnaz Jaeger MD PATHOLOGY/CYTOLOGY ORDERABLES nal Result [facility] [phone] [facility] [address] [address] [phone] from Last 3 Months or Most Recently Relevant to Health Maintenance Insurance [email or web address] [facility] [id number] [employer] Advance Directives For more information, please contact: [phone] * Full Code (Latest Code Status on File) Date Activated Date Inactivated Comments 10/20/2022 9:16 AM 10/20/2022 3:54 PM * Full Code Date Activated Date Inactivated Comments 02/01/2022 9:43 AM 02/01/2022 7:50 PM Care Teams Steam Shovel Runner Relationship Specialty Start Date End Date Agustina Alexis MD [address] [phone] PCP - General Internal Medicine 01/28/21
--- NOTE | 2025-03-02 12:53 | PC.NURSE ---
final urine culture reviewed. no growth. no change in plan of care
== END 2025-02-27 23:01 | disposition home or self-care (01) ==
LOC: CHSED 22:55
PROVIDERS: Emergency Provider Emergency Medicine; PCP Family Medicine
DX: N30.00 Acute cystitis without hematuria (principal)
CPT/HCPCS: 81001; 87086; 99283; A9270

== ENCOUNTER 2025-06-30 16:31 | Emergency (ER) | payer OTHER, SELFPAY ==
--- NOTE | ~2025-06-30 | CT_ITS ---
CT abdomen pelvis w con Clinical History: abdominal pain . Comparison: None Technique: Axial images lung bases to symphysis pubis IV contrast information not listed in PACS Coronal, sagittal reformats CT images acquired with automatic exposure control for dose reduction DLP: 209 mGy-cm Findings: Lung bases: Clear. Visualized heart and pericardium: Unremarkable. Liver: Unremarkable. Gallbladder: Unremarkable. Spleen: Unremarkable. Pancreas: Unremarkable. Adrenal glands: Unremarkable. Kidneys: Right kidney- minimal hydronephrosis most likely secondary to distended bladder. No renal stones. Left kidney- No hydronephrosis. No renal stones. Distal esophagus/stomach: Unremarkable. Small bowel loops: Normal caliber and wall thickness. Colon: Normal caliber and wall thickness. Normal RLQ appendix. Nodes: No enlarged nodes. Peritoneum: No ascites. No free air. Urinary bladder: Distended. Uterus: Unremarkable. Adnexa: No masses. Small pelvic free fluid. Bones: No acute bony abnormality. Soft tissues: Unremarkable. Aorta: No aneurysm or dissection. IVC: Unremarkable. Main portal vein/SMV/splenic vein: Patent. IMPRESSION: 1. No acute findings. Reviewed, dictated and finalized at location R. IMPRESSION: 1. No acute findings.
[2025-06-30 16:31] VITALS: BP 115/68; PULSE 89; RESP 18; TEMP 36.6; O2SAT 100
--- NOTE | 2025-06-30 16:58 | ED_ITS ---
HPI - Back Pain/Injury General Chief Complaint: Back Pain/Injury Stated Complaint: rt. side back pain Time Seen by Provider: 06/30/25 16:58 Source: patient Mode of arrival: ambulatory Limitations: no limitations History of Present Illness HPI Narrative: 25 year old female presents to the Emergency Department complaining of abdominal pain. Onset 5 days ago. History of recurrent urinary tract infections. Patient saw Urologist, who Rx Macrobid. She was called today and advised all her labs were normal. She states she has some dysuria and pain to pelvic region. Now pain is radiating to right abdomen/flank and right upper quadrant. She has a history of endometriosis with surgical removal of implants and uterine surgery. She denies vomiting and diarrhea. MD elicited complaint: back pain (right flank) Onset (ago): day(s) (5) Timing: intermittent Quality: sharp Radiation: abdomen Exacerbating factors: none Relieving factors: none Related Data Allergies Allergy/AdvReac Type Severity Reaction Status Date / Time amoxicillin AdvReac Unknown rash Verified 06/30/25 16:37 Review of Systems 2 Review of Systems: All systems reviewed & are unremarkable except as noted in HPI and below Constitutional: Constitutional: Reports as per HPI, Denies chills and Denies fever(s) Eyes: Eyes: Reports as per HPI ENT: Reports system reviewed and no additional complaints, except as documented Cardiovascular: Cardiovascular: Reports as per HPI and Denies chest pain Respiratory: Respiratory: Reports as per HPI and Denies dyspnea Gastrointestinal: Gastrointestinal: Reports as per HPI, Reports abdominal pain, Denies constipation, Denies diarrhea, Denies nausea and Denies vomiting Genitourinary: Genitourinary: Reports no additional female genitourinary complaints, Reports dysuria, Reports pelvic pain and Reports flank pain Musculoskeletal: Musculoskeletal: Reports no additional musculoskeletal complaints Integumentary/Breasts: Skin/Breast: Reports system reviewed and no additional complaints, except as docu Neurologic: Reports system reviewed and no additional complaints, except as documented Psychiatric: Psychiatric: Reports no additional psychiatric complaints Endocrine: Endocrine: Reports no additional endocrine complaints Hematologic/Lymphatic: Hematologic/Lymphatic: Reports no additional hematologic/lymphatic complaints Allergic/Immunologic: Allergic/Immunologic: Reports no additional allergic/immunologic complaints PMFSH Past Medical History Medical History Patient denies medical problems Family History Family History Mother Heart disease Grandparent Diabetes mellitus Social History Social History Smoking status: Never smoker Alcohol intake: current Drinks per week: 1 Substance use: never Exam 2 Const: General: healthy appearing, no acute distress and alert Nutritional Appearance: well nourished Orientation/consciousness: patient oriented x3 Limitations: no limitations HENMT: Head: normal to inspection Ears: external ears normal F carl/Nose/Sinus: Normal external nose present Face and sinus: normal facial exam Eyes: Conjunctivae: conjunctivae normal Pupils: Equal, round and reactive pupils present EOM: EOMs intact bilaterally Direct Ophthalmoscopy: no photophobia Neck: Neck: normal visual inspection Chest: Chest palpation & inspection: normal inspection of the chest Resp: Effort & Inspection: normal respiratory effort Auscultation: clear to auscultation bilaterally Cardio: Rate: regular rate Rhythm: regular rhythm GI: Inspection: non-distended Auscultation: normal bowel sounds Other: tender to palpation epigastric region primarily : General: Yes bladder normal to palpation Back/Spine/Pelvis: Back: CVA tenderness (mild right lower) Skin: General skin exam: normal color Rashes: no rashes Wounds: no wounds Neuro: General: patient oriented x3 Cranial nerves: Yes Nystagmus not present Speech: normal speech Gait exam (Neuro): Normal gait present O ther: grossly normal Extrem: General: normal to inspection Psych: Mental Status: mental status grossly normal Course Course Emergency Course: 25 y/o female presents to the ED c/o abdominal /flank pain. Onset 5 days ago. Has symptoms, saw Urology, Rx Macrobid, labs normal. History endometriosis. PE: tender epigastric region and right lower flank to percussion CBC: H/H 13.3/39.6, Plt 172; wbc 6.3 with 60 S, 32 L, 6 M CMP: Na 140, K 4.1, Cl 101, CO2 25, Glc 96, BUN 8, Cr 0.55 A/L: 81 /93 Lactic: 0.9 UA: unremarkable UPreg: negative CT Abd/Pelvis: no acute findings Tx: saline lock, Toradol 30 mg IVP *reviewed and discussed results with patient and her mother. Discussed further management. Patient voices understanding and agreement. Rx and Instructions Vital Signs Vital signs: Vital Signs Temperature 36.6 C 06/30/25 16:31 Pulse Rate 89 06/30/25 16:31 Respiratory Rate 18 06/30/25 16:31 Blood Pressure 115/68 06/30/25 16:31 Pulse Oximetry 100 06/30/25 16:31 Oxygen Delivery Room Air 06/30/25 16:31 Temperature 36.6 C 06/30/25 16:31 Pulse Rate 89 06/30/25 16:31 Respiratory Rate 18 06/30/25 16:31 Blood Pressure 115/68 06/30/25 16:31 Pulse Oximetry 100 06/30/25 16:31 Oxygen Delivery Room Air 06/30/25 16:31 MDM - Back Pain/Injury Lab Data 06/30/25 17:12 06/30/25 17:12 Labs: Lab Results 06/30/25 06/30/25 Range/Units 17:10 17:12 WBC 6.3 (4.8-10.8) K/mm3 RBC 4.35 (4.20-5.40) M/mm3 Hgb 13.3 (12.0-15.0) g/dL Hct 39.6 (35.0-49.0) % MCV 91.0 (78.0-102.0) fL MCH 30.6 (27.0-31.0) pg MCHC 33.6 (32-36) g/dL RDW 11.9 (11.6-14.4) % Plt Count 172 (150-420) K/mm3 MPV 10.4 (9.2-11.8) fl Immature Gran % (Auto) 0.2 H (0.0-0.0) % Neut % (Auto) 60.0 (50.0-70.0) % Lymph % (Auto) 32.0 (18.0-42.0) % Waldo % (Auto) 5.7 (2.0-11.0) % Eos % (Auto) 1.9 (1.0-6.0) % Baso % (Auto) 0.2 (0.0-1.0) % Lymph # (Auto) 2.01 (1.10-4.50) K/mm3 Waldo # (Auto) 0.36 (0.10-0.90) K/mm3 Eos # (Auto) 0.12 (0.02-0.50) K/mm3 Baso # (Auto) 0.01 (0.00-0.10) K/mm3 Abs Immat Gran (auto) 0.01 H (0.00-0.00) K/mm3 Absolute Neuts (auto) 3.77 (1.70-7.20) K/mm3 Absolute Nucleated RBC 0.00 (0.00-0.00) K/mm3 Nucleated RBC % 0.0 (0-0.0) % Sodium 140 (137-145) mmol/L Potassium 4.1 (3.4-5.0) mmol/L Chloride 101 (98-107) mmol/L Carbon Dioxide 25 (22-30) mmol/L Anion Gap 14 H (4-12) mmol/L BUN 8 (7-17) mg/dL Creatinine 0.55 L (0.7-1.0) mg/dL Estim Creat Clear Calc 102 ml/min Estimated GFR > 60 (59 - ) Glucose 96 (65-110) mg/dL Calculated Osmolality 288 (285-295) mOsm/kg Lactic Acid 0.9 (0.4-2.0) mmol/L Calcium 10.1 (8.4-10.2) mg/dL Total Bilirubin 1.3 (0.2-1.3) mg/dL AST 29 (14-36) U/L ALT 19 (6-35) U/L Alkaline Phosphatase 39 (38-126) U/L Total Protein 9.4 H (6.3-8.2) g/dL Albumin 5.2 H (3.5-5.1) g/dL Amylase 81 (30-110) U/L Lipase 93 (23-300) U/L Urine Color Yellow (Yellow) Urine Appearance Clear (Clear) Urine pH 7.0 (5.0-8.0) Ur Specific [place] <= 1.005 L (1.010-1.020) Urine Protein Negative (Negative) Urine Glucose (UA) Negative (Negative) Urine Ketones Negative (Negative) Ur Blood (Man) Trace-intact H (Negative) Urine Nitrate Negative (Negative) Urine Bilirubin Negative (Negative) Urine Urobilinogen 0.2 (0.2-1.0) mg/dL Ur Leukocyte Esterase Negative (Negative) Urine Test Negative Discharge Plan Discharge Clinical Impression: Abdominal pain Patient Disposition: Home Condition: Stable Instructions: Endometriosis (ED), Gastritis (ED), Pelvic Pain in Women (ED), Abdominal Pain (ED) Additional Instructions: Push fluids Diet as tolerated Mylanta 2 tbsp 4x/day - after meals and bedtime Take medications as prescribed Follow up with your Primary Care Provider Follow up with your Watershed Program Manager Consider evaluation by Gastroenterology Patient Language: Citizen Of [place] Prescriptions: New omeprazole 40 mg capsule,delayed release(DR/EC) 40 mg PO DAILY Qty: 20 0RF oxycodone-acetaminophen 7.5-325 mg tablet 1 tablet PO Q6H PRN (Reason: pain) Qty: 20 0RF No Action nitrofurantoin monohyd/m-cryst [Macrobid] 100 mg capsule 100 mg PO Q12H 7 Days Qty: 14 0RF Rx Instructions: must administer with a meal/food Follow-up/Referrals: UNKNOWN,DOCTOR [Non-Staff] Lex Adhikari MD [Physician, Internal Medicine] Time of Disposition: 18:50
--- NOTE | 2025-06-30 17:17 | PC.NURSE ---
MD Jenna verbal order to hold Toradol IVP until urine is back.
[2025-06-30 17:19] LABS: Hematocrit 39.6 % (35.0-49.0); Hemoglobin 13.3 g/dL (12.0-15.0); Immature Granulocyte Percent A 0.2 % (0.0-0.0); Lymphocytes Absolute Auto 2.01 K/mm3 (1.10-4.50); Mean Corpuscular HGB Conc 33.6 g/dL (32-36); Mean Corpuscular Hemoglobin 30.6 pg (27.0-31.0); Mean Corpuscular Volume 91.0 fL (78.0-102.0); Nucleated Red Blood Cells Absolute Auto 0.00 K/mm3 (0.00-0.00); Nucleated Red Blood Cells Perc 0.0 % (0-0.0); Platelet Count Result 172 K/mm3 (150-420); Red Blood Count 4.35 M/mm3 (4.20-5.40); White Blood Count 6.3 K/mm3 (4.8-10.8)
[2025-06-30 17:21] LABS: Add Urine Microscopic? NO; Appearance Urine Clear (Clear); Glucose Urine UA Negative (Negative); Leukocyte Esterase Ur Negative (Negative); Nitrate Urine Negative (Negative); Specific Grav Ur <= 1.005 (1.010-1.020)
[2025-06-30 17:27] LABS: Pregnancy On Board Control Positive
[2025-06-30 17:33] LABS: Alanine Aminotransferase 19 U/L (6-35); Albumin Level 5.2 g/dL (3.5-5.1); Alkaline Phosphatase 39 U/L (38-126); Amylase 81 U/L (30-110); Anion Gap 14 mmol/L (4-12); Aspartate Amino Transferase 29 U/L (14-36); Bilirubin,Total 1.3 mg/dL (0.2-1.3); Blood Urea Nitrogen 8 mg/dL (7-17); Calcium 10.1 mg/dL (8.4-10.2); Carbon Dioxide 25 mmol/L (22-30); Chloride 101 mmol/L (98-107); Estimated CRCL calculation 102 ml/min; Estimated Glomerular Filt Rate > 60; Glucose 96 mg/dL (65-110); Lipase 93 U/L (23-300); Osmolality Calculated 288 mOsm/kg (285-295); Potassium 4.1 mmol/L (3.4-5.0); Sodium 140 mmol/L (137-145); Total Protein 9.4 g/dL (6.3-8.2)
[2025-06-30] MEDS: KETOROLAC 30 MG/ML VIAL (*BKC) IV PUSH (17:35)
--- NOTE | 2025-06-30 17:59 | PC.NURSE ---
Pt to CT scanner with radiology transport.
--- NOTE | 2025-06-30 18:08 | PC.NURSE ---
Pt back in room from CT scanner.
--- OUTSIDE RECORDS SUMMARY | 2025-06-30 18:56 | XMS_ITS | Clinical Summary ---
Author Organization [employer] [facility] [address] Address [address] [place] [address] Care Team Providers Care Grain Operations Manager Name Role Phone Agustina Alexis MD Primary Care Provider [phone] Allergies Active Allergy Reactions Criticality Noted Date [...] as needed. 30 Tablet 10/20/2022 1:45 PM APPLICATIONS ENGINEER MANUFACTURING 3 Active Additional Information Patient not taking.Reported [...] Encounters Date Type Department Care Team Description 05/21/2025 External Device Data STL ABSTRACTION Provider, Abstract 05/20/2025 External Device Data STL ABSTRACTION Provider, Abstract 04/30/2025 External Device Data STL ABSTRACTION Provider, Abstract 04/29/2025 External Device Data STL ABSTRACTION Provider, Abstract 04/15/2025 External Device Data STL ABSTRACTION Provider, Abstract from Last 3 Months Immunizations Immunization Administration Dates Next Due (PagaTuAlquiler)(12 YR UP) COVID-19 VACCINE - EMERGENCY USE AUTHORIZATION, MRNA, [id number](PF) 30 MCG/0.3 ML IM SUSP 02/20/2021,01/30/2021 Family [...] on file Legal Sex Female 12:49 AM APPLICATIONS ENGINEER MANUFACTURING Gender Identity Not on file Sexual Orientation Not on file Last Filed Vital Signs Vital Sign Reading Time Taken Comments Blood Pressure 110/64 02/06/2025 10:18 AM CDT Pulse 88 10/20/2022 1:04 PM APPLICATIONS ENGINEER MANUFACTURING Temperature 36.8 C (98.3 F) 10/20/2022 1:04 PM APPLICATIONS ENGINEER MANUFACTURING Respiratory Rate 16 10/20/2022 1:04 PM APPLICATIONS ENGINEER MANUFACTURING Oxygen Saturation 100% 10/20/2022 1:04 PM APPLICATIONS ENGINEER MANUFACTURING Inhaled Oxygen Concentration - - Weight 52.6 kg (116 lb) 11/08/2024 1:14 PM APPLICATIONS ENGINEER MANUFACTURING Height 157.5 cm (5' 2.01) 02/06/2025 10:18 AM C DT Body Mass Index 21.21 11/08/2024 1:14 PM APPLICATIONS ENGINEER MANUFACTURING Plan of Treatment Health Maintenance Due Date Last Done Comments DTAP/TDAP/TD VACCINES (1 - Tdap) 2017 HEPATITIS B VACCINES (1 of 3 - 19+ 3-dose series) 2017 HPV/Cotest (21-29) 2019 HPV VACCINES (1 - 3-dose SCDM series) 2025 INFLUENZA VACCINE (#1) 2025 COVID-19 Vaccine (3 - 2024- season) 06/16/202505/2021, 01/30/2021 CERVICAL CANCER SCREENING 11/08/2027 PAP SMEAR 11/08/2027 11/08/2024, 10/16 (Previously completed) Preventative Visit- Commercial Completed 11/08/2024 Procedures Procedure Name Priority Date/Time Associated Diagnosis Comments CERV/VAG CYTO AGE BASED SCREEN PAP Routine 11/08/2024 2:02 PM APPLICATIONS ENGINEER MANUFACTURING Screening for cervical cancer from Last 3 Months or Most Recently Relevant to Health Maintenance Results * CERV/VAG CYTO AGE BASED SCREEN PAP (11/08/2024 2:02 PM APPLICATIONS ENGINEER MANUFACTURING) COMMENT (PAP): Khushi Taylor Comment: This order for age-based cervical cancer and STI screening follows ACOG guidelines(PB 168, 140, WUY058). See individual assays for performing site location. CLINICAL INFORMATION Khushi Taylor Comment:None given LAST MENSTRUAL PERIOD Khushi Taylor Comment:11/06/2024 PREV PAP: Khushi Taylor Comment:NONE GIVEN PREV BX: Khushi Taylor Comment:NONE GIVEN SOURCE Khushi Taylor Comment:Endocervix ADEQUACY: Khushi Taylor Comment: Satisfactory for evaluation. Endocervical/transformation zone component present. PAP INTERP Khushi Taylor Comment: Cytology Results: Negative for intraepithelial lesion or malignancy. COMMENT (PAP TEST) Q umei Taylor Comment: This Pap test has been evaluated with computer assisted technology. DIRECTOR OF IT OPERATIONS: Alison Taylor Comment: MEF, CT(ASCP) CT screening location: [place] [address] [place] [address] Johan Taylor Comment: [...] and current clinical information. Test Performed at: [place] [address] [address] [phone] Angel Yee Genital SWAB OF ENDOCERVIX / Unknown 11/08/2024 2:02 PM APPLICATIONS ENGINEER MANUFACTURING 11/09/2024 12:49 AM APPLICATIONS ENGINEER MANUFACTURING us Farnaz Jaeger MD PATHOLOGY/CYTOLOGY ORDERABLES Fi nal Result [facility] [phone] [place] [address] [address] [phone] from Last 3 Months or Most Recently Relevant to Health Maintenance Insurance [employer] [id number] [employer] Advance Directives For more information, please contact: [phone] * Full Code (Latest Code Status on File) Date Activated Date Inactivated Comments 10/20/2022 9:16 AM 10/20/2022 3:54 PM * Full Code Date Activated Date Inactivated Comments 02/01/2022 9:43 AM 02/01/2022 7:50 PM Care Teams Grain Operations Manager Relationship Specialty Start Date End Date Agustina Alexis MD [address] [address] PCP - General Internal Medicine 01/28/21
--- OUTSIDE RECORDS SUMMARY | 2025-06-30 18:56 | XMS_ITS | Clinical Summary ---
Author Organization [facility] Address [address] [place] [address] Care Team Providers Care Concrete Pavement Installer Name Role Phone Jazzmine Ly MD Primary Care Provider [phone] Source Comments [facility],non-owned Affiliates and Associated Physician Practices is amultiple site organization consisting of ambulatory clinics and hospital sitesin [place], [place], [place] and [place]. This disclosure is being madepursuant to the Care Everywhere program and may not contain all information available regarding this patient. Last updated 18.[facility] Allergies Active Allergy Reactions Criticality Noted Date [...] 11:57 AM CDT Height 157.5 cm (5' 2) 12/25/2019 11:57 AM CDT Body Mass Index 21.03 12/25/2019 11:57 AM CDT Plan of Treatment Health Maintenance Due Date Last Done Comments HIV SCREENING 2013 HEPATITIS C SCREENING 04/17/2016 DTAP/TDAP/TD VACCINES (1 - Tdap) 2017 HEPATITIS B VACCINE (1 of 3 - 19+ 3-dose series) 2017 DEPRESSION SCREENING 10/16/2024 HPV VACCINE (1 - 3-dose SCDM series) 2025 COVID-19 VACCINE (1 - 2023-2 5 season) 2025 INFLUENZA VACCINE (#1) 2025 ZOSTER VACCINE (1 of 2) 2048 [...] patient's age to complete this topic Insurance [facility] Care Teams Concrete Pavement Installer Relationship Specialty Start Date End Date Jazzmine Ly MD [address] [place] [id number] PCP - General Pediatrics 01/02/17
[2025-06-30 19:09] VITALS: BP 117/86; PULSE 73; RESP 16; O2SAT 97
== END 2025-06-30 19:10 | disposition home or self-care (01) ==
PROVIDERS: Emergency Provider Emergency Medicine; Referring Provider Internal Medicine
DX: R10.9 Unspecified abdominal pain (principal)
CPT/HCPCS: 36415; 74177; 80053; 81003; 81025; 82150; 83605; 83690; 85025; 99283; J1885; Q9967